=== PATIENT | male | born 1990 | race Caucasian/White ===

== ENCOUNTER 2023-10-11 11:58 | Emergency (ER) | payer BC | END 2023-10-11 12:30 | disposition home or self-care (01) | LOC: EDUNIT# → VM.ED 11:58 | DX: S61.012A Laceration without foreign body of left thumb without damage to nail, initial encounter (principal); W26.8XXA Contact with other sharp object(s), not elsewhere classified, initial encounter; Y93.89 Activity, other specified; Y99.0 Civilian activity done for income or pay | CPT/HCPCS: 12001; 99282 ==